=== PATIENT | male | born 1995 ===

== ENCOUNTER 2017-01-27 08:21 | Emergency (ER) | payer OTHER ==
--- NOTE | 2017-01-27 08:40 | ED PDOC ---
Lower Extremity Pain/Injury Time Seen by Provider: 01/27/17 08:24 Chief Complaint (Provider): Right Knee Pain History Per: Patient History/Exam Limitations: no limitations Onset/Duration Of Symptoms: Days (x1) Current Symptoms Are (Timing): Still Present Additional Complaint(s): Perry Ruff is a 22 year old male with a past medical history of right knee meniscus repair completed 8 years ago presenting to the ED for an evaluation of right knee pain occurring since yesterday. The patient reports his right knee pain worsens on ambulation. He denies any injury or trauma. PMD: TBD Past Medical History Reviewed: Historical Data, Nursing Documentation, Vital Signs - Medical History PMH: No Chronic Diseases - Surgical History Other surgeries: right knee meniscus repair - Family History Family History: States: No Known Family Hx - Social History Current smoker - smoking cessation education provided: Yes Alcohol: Social Drugs: Denies - Home Medications Home Medications: Ambulatory Orders Medication Instructions Recorded Naproxen [Naprosyn] 500 mg PO Q12H #20 tab 01/27/17 - Allergies Allergies/Adverse Reactions: Allergies Allergy/AdvReac Type Severity Reaction Status Date / Time No Known Allergies Allergy Verified 01/27/17 08:42 Review of Systems ROS Statement: Except As Marked, All Systems Reviewed And Found Negative Constitutional: Negative for: Other (no injury or trauma ) Musculoskeletal: Positive for: Leg Pain (right knee pain) Physical Exam - Reviewed Nursing Documentation Reviewed: Yes Vital Signs Reviewed: Yes - Physical Exam Appears: Positive for: Non-toxic, No Acute Distress Head Exam: Positive for: ATRAUMATIC, NORMOCEPHALIC Extremity: Positive for: Normal ROM (to right knee). Negative for: Tenderness ( to right knee), Swelling (to right knee), Other (no erythema to right knee; no crepitus on ROM to right knee) Neurologic/Psych: Positive for: Alert, Oriented (x3). Negative for: Motor/ Sensory Deficits Medical Decision Making Medical Decision Making: Time: 08:24 Impression: Right knee pain Plan: * [RAD] Knee 3 Views RT * Reevaluation Scribe Attestation: Documented by Yaima Berumen, acting as a scribe for Jair Srinivasan MD. Provider Scribe Attestation: All medical record entries made by the Scribe were at my direction and personally dictated by me. I have reviewed the chart and agree that the record accurately reflects my personal performance of the history, physical exam, medical decision making, and the department course for this patient. I have also personally directed, reviewed, and agree with the discharge instructions and disposition. Disposition - Clinical Impression Clinical Impression: Knee pain - Patient ED Disposition Is Patient to be Admitted: No Counseled Patient/Family Regarding: Studies Performed, Diagnosis, Need For Followup, Rx Given - Disposition Referrals: Quan Kellogg III, MD [Staff Provider] - Disposition: Routine/Home Disposition Time: 09:11 Condition: FAIR Prescriptions: Naproxen [Naprosyn] 500 mg PO Q12H #20 tab Instructions: Knee Pain (ED) Print Language: UGANDAN
[2017-01-27 08:46] VITALS: BP 129/75; PULSE 77; RESP 18; TEMP 97; O2SAT 99
--- NOTE | 2017-01-27 10:34 | RAD ---
PROCEDURE: Right Knee Radiographs. HISTORY: pain COMPARISON: None. FINDINGS: BONES: Normal. No fracture. JOINTS: Normal. No osteoarthritis. JOINT EFFUSION: Suspect trace suprapatellar joint effusion. OTHER FINDINGS: None. IMPRESSION: No evidence of acute displaced fracture nor dislocation. Suspect trace suprapatellar joint effusion.
== END 2017-01-27 09:58 | disposition home or self-care (01) ==
LOC: H.ER 08:21
DX: M25.561 Pain in right knee (principal)

== ENCOUNTER 2018-05-08 09:23 | Emergency (ER) | payer SELFPAY ==
[2018-05-08 09:32] VITALS: BMI 29.5
[2018-05-08 09:34] VITALS: BP 108/68; PULSE 86; RESP 20; TEMP 98.4; O2SAT 98
[2018-05-08] MEDS ORDERED: Albuterol 0.083% Inhal Sol (2.5 mg/3 mL) UD INH ONE (10:58)
--- NOTE | 2018-05-08 11:18 | RAD ---
HISTORY: cough COMPARISON: No prior. TECHNIQUE: Chest PA and lateral FINDINGS: LUNGS: Suspected subtle patchy atelectasis or infiltrate in the right hilar/infrahilar region. Please note that chest x-ray has limited sensitivity for the detection of pulmonary masses. PLEURA: No significant pleural effusion identified. No definite pneumothorax . CARDIOVASCULAR: The cardiomediastinal silhouette appears within normal limits of size. No atherosclerotic calcification present. OSSEOUS STRUCTURES: No acute osseous abnormality identified. VISUALIZED UPPER ABDOMEN: Unremarkable. OTHER FINDINGS: None. IMPRESSION: Suspected subtle patchy atelectasis or infiltrate in the right hilar/infrahilar region.
[2018-05-08] MEDS ORDERED: Albuterol 0.083% Inhal Sol (2.5 mg/3 mL) UD ONE (11:37)
--- NOTE | 2018-05-08 12:11 | ED PDOC ---
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 Patient states over the weekend, he developed fever and vomiting. Whenever he coughs, his head vibrates. He has dry cough and sometimes coughs with phlegm. Otherwise, he denies diarrhea or body ache. Patient states he is up to date with this flu shot. PMD: no family provider Past Medical History Reviewed: Historical Data, Nursing Documentation, Vital Signs Vital Signs: Last Vital Signs Temp 98.4 F 05/08/18 09:33 Pulse 86 05/08/18 09:33 Resp 20 05/08/18 09:33 BP 108/68 05/08/18 09:33 Pulse Ox 98 05/08/18 09:33 - Medical History PMH: No Chronic Diseases - Surgical History Other surgeries: knee surgery - Family History Family History: States: Unknown Family Hx - Social History Current smoker - smoking cessation education provided: No Alcohol: None Drugs: Denies - Home Medications Home Medications: Ambulatory Orders Medication Instructions Recorded Naproxen [Naprosyn] 500 mg PO Q12H #20 tab 01/27/17 Oseltamivir Cap [Tamiflu] 75 mg PO BID #10 cap 05/08/18 - Allergies Allergies/Adverse Reactions: Allergies Allergy/AdvReac Type Severity Reaction Status Date / Time No Known Allergies Allergy Verified 05/08/18 09:41 Review of Systems ROS Statement: Except As Marked, All Systems Reviewed And Found Negative Constitutional: Positive for: Fever. Negative for: Other (body ache) ENT: Positive for: Nose Congestion Cardiovascular: Positive for: Chest Pain Respiratory: Positive for: Cough Gastrointestinal: Positive for: Vomiting. Negative for: Diarrhea Physical Exam - Reviewed Nursing Documentation Reviewed: Yes Vital Signs Reviewed: Yes - Physical Exam Appears: Positive for: Well, Non-toxic, No Acute Distress Head Exam: Positive for: ATRAUMATIC, NORMAL INSPECTION, NORMOCEPHALIC Skin: Positive for: Normal Color, Warm, Dry Eye Exam: Positive for: EOMI, Normal appearance, PERRL ENT: Positive for: Tonsillar Swelling (minimal), Other (tonsillar erythema ). Negative for: Tonsillar Exudate Neck: Positive for: Normal, Painless ROM Cardiovascular/Chest: Positive for: Regular Rate, Rhythm Respiratory: Positive for: Normal Breath Sounds. Negative for: Wheezing Gastrointestinal/Abdominal: Positive for: Normal Exam, Soft. Negative for: Tenderness Back: Positive for: Normal Inspection Extremity: Positive for: Normal ROM. Negative for: Tenderness, Pedal Edema, Deformity Neurological/Psych: Positive for: Awake, Alert, Normal Tone, Oriented (x3) Medical Decision Making Medical Decision Making: Time: 1057 Plan: Chest two views [RAD] Albuterol 2.5mg Ibuprofen 600mg Throat culture peak flow pre/post TX Infleunza A B Rapid strep gorup A antigent RSV Reevaluation 1115 HISTORY:cough COMPARISON: No prior. TECHNIQUE: Chest PA and lateral FINDINGS: LUNGS: Suspected subtle patchy atelectasis or infiltrate in the right hilar/infrahilar region. Please note that chest x-ray has limited sensitivity for the detection of pulmonary masses. PLEURA: No significant pleural effusion identified. No definite pneumothorax . CARDIOVASCULAR: The cardiomediastinal silhouette appears within normal limits of size. No atherosclerotic calcification present. OSSEOUS STRUCTURES: No acute osseous abnormality identified. VISUALIZED UPPER ABDOMEN: Unremarkable. OTHER FINDINGS: None. IMPRESSION: Suspected subtle patchy atelectasis or infiltrate in the right hilar/infrahilar region. 1230 Patient's serology presents positive for influenza A and group A Beta Srep Ag is negative Patient discharged home with Tamiflu Scribe Attestation: Documented by Paris Carl, acting as a scribe Linda Alex MD. Provider Scribe Attestation: All medical record entries made by the Scribe were at my direction and personally dictated by me. I have reviewed the chart and agree that the record accurately reflects my personal performance of the history, physical exam, medical decision making, and the department course for this patient. I have also personally directed, reviewed, and agree with the discharge instructions and disposition. - ECG O2 Sat by Pulse Oximetry: 98 (RA) Pulse Ox Interpretation: Normal Disposition - Clinical Impression Clinical Impression: Influenza - Patient ED Disposition Is Patient to be Admitted: No - Disposition Referrals: [facility] [Outside] [facility] [Outside] Disposition: Routine/Home Disposition Time: 12:30 Condition: IMPROVED Additional Instructions: follow up in the clinic in one week return to the ED with any worsening or concerning symptoms Prescriptions: Oseltamivir Cap [Tamiflu] 75 mg PO BID #10 cap Instructions: Flu, Adult (DC) Forms: [employer] (Romanian), [employer] (Citizen Of [place]), [facility] ED School/Work Excuse Print Language: EMIRATI
== END 2018-05-08 13:21 | disposition home or self-care (01) ==
LOC: H.ER 09:23
DX: J11.1 Influenza due to unidentified influenza virus with other respiratory manifestations (principal)